=== PATIENT | male | born 1965 | race African-American/Black ===

== ENCOUNTER 2017-06-19 20:06 | Inpatient (IN) | payer BC ==
[~2017-06-19] VITALS: Ht 177.8 cm; Wt 80.7 kg
[2017-06-19] MEDS ORDERED: MAG HYDROX/AL HYDROX/SIMETH 30 ML UDC PO PRN (21:00)
[2017-06-19] MEDS ORDERED: HYDROCODONE/APAP 5/325MG 1 EACH TABLET PO PRN (21:00)
[2017-06-19] MEDS ORDERED: Z GUARD REMEDY 2 OZ OINT TP PRN (21:00)
[2017-06-19] MEDS ORDERED: ONDANSETRON HCL/PF 4 MG/2 ML VIAL IVP PRN (21:00)
[2017-06-19] MEDS ORDERED: ENOXAPARIN SODIUM 40 MG/0.4 ML DISP.SYRIN SQ SCH (21:00)
[2017-06-19] MEDS ORDERED: ACETAMINOPHEN 325 MG TABLET PO PRN (21:00)
[2017-06-19] MEDS ORDERED: ZOLPIDEM TARTRATE 5 MG TABLET PO PRN (21:00)
[2017-06-19] MEDS ORDERED: MAGNESIUM HYDROXIDE 30 ML UDC PO PRN (21:00)
[2017-06-19] MEDS ORDERED: NITROGLYCERIN 0.4 MG/TAB BOTTLE SL PRN (21:00)
[2017-06-19] MEDS ORDERED: MORPHINE SULFATE INJ 2 MG/ML DISP.SYRIN IV PRN (21:00)
[2017-06-19 23:03] VITALS: BP 128/84
[2017-06-20] VITALS: BP 103/64
[2017-06-20 04:00] VITALS: BP 109/70
[2017-06-20 06:58] LABS: BASOPHILS % (AUTO) 0.4 % (0.0-2.0); EOSINOPHILS # (AUTO) 0.3 /CMM (0.0-0.7); EOSINOPHILS % (AUTO) 7.6 % (0.0-6.0); HEMATOCRIT 40 % (39-51); HEMOGLOBIN 13.8 g/dL (13.5-17.5); LYMPHOCYTES # (AUTO) 1.9 /CMM (0.8-4.8); LYMPHOCYTES % (AUTO) 50.4 % (20.0-44.0); MEAN CORPUSCULAR HEMOGLOBIN 29 PG (26.0-33.0); MEAN CORPUSCULAR HGB CONC 34 g/dl (31.0-36.0); MEAN CORPUSCULAR VOLUME 85 fL (80-96); MONOCYTES # (AUTO) 0.3 /CMM (0.1-1.30); MONOCYTES % (AUTO) 8.9 % (2.0-12.0); NEUTROPHILS # (AUTO) 1.3 /CMM (1.8-8.9); NEUTROPHILS % (AUTO) 32.7 % (43.0-81.0); PLATELET COUNT (AUTO) 185 /CMM (150-450); RDW COEFFICIENT OF VARIATION 14.2 (11.5-15.0); RED BLOOD CELL COUNT(AUTO) 4.74 MIL/uL (4.5-6.0); WHITE BLOOD COUNT (AUTO) 3.9 K/uL (4.3-11.0)
[2017-06-20 07:07] LABS: CALCIUM, SERUM 8.5 mg/dL (8.5-10.1); MAGNESIUM 1.6 mg/dL (1.8-2.4); PHOSPHORUS 3.6 mg/dL (2.5-4.9); POTASSIUM 4.1 mmol/L (3.5-5.1)
--- NOTE | 2017-06-20 07:21 | NUR ---
TRAIN OPERATIONS SUPERVISOR NOTES RECEIVED PT ON BED SLEEPING. ALERT ORIENTEDX4. ON TELE MONITOR SR. HEAD OF BED ELEVATED. SIDE RAILS UP. CALL LIGHT WITHIN REACH. WILL CONTINUE TO MONITOR PT CLOSELY.
[2017-06-20] MEDS ORDERED: ASPI-1169 PO (07:55)
[2017-06-20] MEDS ORDERED: SIMV20TA6 PO (07:55)
[2017-06-20] MEDS ORDERED: LAMO25TA5 PO (07:55)
[2017-06-20] MEDS ORDERED: METF500T4 PO (07:55)
[2017-06-20] MEDS ORDERED: HYDR-3026 PO (07:55)
[2017-06-20] MEDS ORDERED: OMEP20CA10 PO (07:55)
[2017-06-20 08:00] VITALS: BP 112/64
[2017-06-20] MEDS ORDERED: ASPIRIN 81 MG TAB.CHEW PO SCH (09:00)
[2017-06-20 09:26] LABS: EOSINOPHILS % (MANUAL) 9 % (0-4); LYMPHOCYTES % (MANUAL) 52 % (16-48); MONOCYTES % (MANUAL) 13 % (0-11.0); NEUTROPHILS % (MANUAL) 26 (42-76)
[2017-06-20] MEDS ORDERED: ATORVASTATIN 10 MG TABLET PO SCH (10:00)
[2017-06-20] MEDS ORDERED: diphenhydrAMINE HCL 50 MG CAPSULE PO ONE (10:34)
[2017-06-20] MEDS ORDERED: IOHEXOL-350 100 ML VIAL IV ONE (10:53)
[2017-06-20] MEDS ORDERED: CT SWABBABLE VALVE TRANS SET 1 EA INFUS.SET MC ONE (10:53)
[2017-06-20] MEDS ORDERED: IV NS 0.9% 250 ML IV ONE (10:53)
[2017-06-20] MEDS ORDERED: NITROGLYCERIN 0.4 MG/TAB BOTTLE ONE (10:53)
[2017-06-20] MEDS ORDERED: METOPROLOL TARTRATE INJ 5 MG/5 ML AMPUL ONE (10:54)
[2017-06-20] MEDS ORDERED: diphenhydrAMINE HCL 25 MG CAPSULE PO ONE (11:00)
[2017-06-20] MEDS ORDERED: methylPREDNISolone SOD SUCC 125 MG/2ML VIAL IV ONE (11:00)
[2017-06-20] MEDS ORDERED: IV NS 0.9% 1,000 ML BAG IV PRN (11:30)
[2017-06-20] MEDS ORDERED: LORAZEPAM INJ 2 MG/ML VIAL IV PRN (11:30)
--- NOTE | 2017-06-20 11:30 | NUR ---
HAND CLIPPER NOTES PT WENT TO RADIOLOGY STABLE.
[2017-06-20] MEDS: Magnesium 1GM/D5W 100ML PREMIX 100 ML IV SCH ×2 (11:56→12:00)
[2017-06-20 12:00] VITALS: BP 98/54
[2017-06-20] MEDS ORDERED: IV NS 0.9% 1,000 ML IV PRN (12:00)
[2017-06-20] MEDS ORDERED: METOPROLOL TARTRATE 50 MG TABLET PO SCH (12:00)
--- NOTE | 2017-06-20 13:03 | NUR ---
WOOL SPOTTER NOTES BLOOD PRESSURE CHECKED [id number]. PT BLOOD PRESSURE STABLE
--- NOTE | 2017-06-20 15:49 | NUR ---
Air Sampling And Monitoring consult was requested by Dr. Gaston Pisano in regards to discharge planning. Patient is a 52 year old male who was admitted to [facility] as a direct admission coming from [facility] for chest pain and possible acute coronary syndrome. SW met with pt. at his bedside. Pt was oriented x3. When asked what month it is, pt reported that it is May. Patient took a while to answer questions as he stated that he cant remember at this time. Pt would dose off during the assessment. Pt does not want SW to contact his emergency contact which is his Glen Lozada ([phone]). Pt was residing at [facility] ([address] [place] [address]; ). Patient reports that he does not smoke cigarettes. Patient states that he does drugs such as heroin, cocaine, and methamphetamines. Patient states that he drinks pint of alcohol a week. SW provided pt. with substance abuse referrals to [facility] ([address] [place] [address]; ), [facility] ([address], [place] [address]; [phone]), and [facility] ([address] [place] [address]; ). Patient reports that he is receiving care from [facility] for drugs and alcohol and does not want to be placed elsewhere. Patient denies any suicidal/homicidal ideation. Pt denies any auditory and visual hallucinations. RIGOBERTO spoke to Steve ([phone]) at [facility] who states that when the pt. is medically stable, pt. can be discharged back there and they will provide transportation. RIGOBERTO spoke with MAGGIE James in regards to pt.s discharge plan and pt.s disposition. RIGOBERTO spoke with case management in regards to pt.s discharge plan. Plan: Patient will return back to [facility] ([address] [place] [address]; ). Case Management will call Steve ([phone]) upon discharge to notify him of discharge time for transportation.
[2017-06-20 16:00] VITALS: BP 111/67
--- NOTE | 2017-06-20 16:21 | NUR ---
PMO LEAD NOTES ATIVAN GIVEN PT IS CONFUSED AND ANXIOUS. NOTIFIED CHARGE NURSE.
--- NOTE | 2017-06-20 17:27 | NUR ---
MISSILEMAN NOTES PT DISCHARGE STABLE. EXIT CARE DONE. REPORT GIVEN TO OG MONDRAGON.
--- NOTE | 2017-06-20 18:24 | NUR ---
LATE ENTRY,DR. BRODERICK NOTIFIED AND RELAYED CTA RESULT,CLEARED PATIENT TO GO BACK TO [facility].PATIENT WANTED TO GO BACK TO [facility] TODAY.DR. TOLLIVER MADE AWARE OF SITUATION OK TO D/C BACK PATIENT TO [facility]. PATIENT AMBULATORY,AWAKE AND ALERT,VSS.PT. ACCOMPANIED BY [facility] FROM [facility] VIA PRIVATE CAR.REPORT GIVEN TO GIANCARLO FOLEY.
== END 2017-06-20 17:35 | DRG 311 ==
LOC: TELE-TD 22:21 → TELE1 22:44
PROVIDERS: ADMIT Nurse Practitioner Acute Care; ATTEND Nurse Practitioner Acute Care
DX: I24.9 Acute ischemic heart disease, unspecified (principal); E83.42 Hypomagnesemia; F10.239 Alcohol dependence with withdrawal, unspecified; I25.10 Atherosclerotic heart disease of native coronary artery without angina pectoris; F14.90 Cocaine use, unspecified, uncomplicated; R07.9 Chest pain, unspecified; F15.90 Other stimulant use, unspecified, uncomplicated; Z59.0 Homelessness; F17.200 Nicotine dependence, unspecified, uncomplicated; Z79.82 Long term (current) use of aspirin; Z79.84 Long term (current) use of oral hypoglycemic drugs; Z79.899 Other long term (current) drug therapy
CPT/HCPCS: 36415; 71045-TC; 75574; 80048-TC; 80061-TC; 83735-TC; 83880; 84100-TC; 84484-TC; 85025-TC; 87040-TC; 87081-TC; J1650; J2060; J2930; J3475; J3490; J7030; J7050; Q0163; Q9967; Z7610

== ENCOUNTER 2021-04-14 11:02 | Emergency (ER) | payer BC ==
[~2021-04-14] VITALS: Ht 177.8 cm; Wt 78.9 kg
[~2021-04-14 11:02] MED LIST: ASPI-1169 PO; HYDR-500 PO; LAMO25TA5 PO; METF-440 PO; OMEP20CA15 PO; SIMV-46 PO
[2021-04-14 11:03] VITALS: BP 106/70
--- NOTE | 2021-04-14 11:15 | NUR ---
PT BECOMES AGGRESSIVE TOWARDS STAFF PT STATING "YOU GUYS ARE LYING TO ME" AND STATING HE WANTS LEAVE. AWARE.
== END 2021-04-14 11:20 | disposition home or self-care (01) ==
LOC: ER 11:06
DX: Z53.21 Procedure and treatment not carried out due to patient leaving prior to being seen by health care provider (principal); R07.89 Other chest pain